=== PATIENT | male | born 1965 | race Caucasian/White ===

== ENCOUNTER 2021-09-10 16:42 | Day surgery (SDC) | payer OTHER ==
[~2021-09-10] VITALS: Ht 182.9 cm; Wt 85.5 kg
[2021-09-10 18:52] LABS: BASO # 0.1 10^3/uL (0.0-0.2); BASO % 0.4 % (0.0-1.0); EOS # 0.2 10^3/uL (0.0-0.5); EOS % 1.1 % (0.0-3.0); HEMATOCRIT 35.1 % (42.0-52.0); HEMOGLOBIN 13.1 g/dl (13.5-17.5); LYMPH # 1.2 10^3/uL (1.5-5.0); LYMPH % 8.6 % (24.0-44.0); MEAN CORPUSCULAR HEMOGLOBIN 34.9 pg (27.0-33.0); MEAN CORPUSCULAR HGB CONC 37.3 g/dl (32.0-36.5); MEAN CORPUSCULAR VOLUME 93.6 fl (80.0-96.0); MONO % 11.3 % (2.0-8.0); NEUTROPHILS % 77.6 % (36.0-66.0); PLATELET COUNT, AUTOMATED 138 10^3/uL (150-450); RED BLOOD COUNT 3.75 10^6/uL (4.30-6.10); WHITE BLOOD COUNT 14.2 10^3/uL (4.0-10.0)
[2021-09-10 19:04] LABS: INR 2.27; PROTHROMBIN TIME 25.4 SECONDS (12.7-14.5)
[2021-09-10 19:05] LABS: PARTIAL THROMBOPLASTIN TIME 59.8 SECONDS (25.9-37.0)
[2021-09-10] MEDS ORDERED: NS 1,000 ML IV ONE (19:05)
[2021-09-10] MEDS ORDERED: POTASSIUM CHLORIDE 10MEQ SR TABLET PO ONE (19:05)
[2021-09-10] MEDS ORDERED: KCL 10MEQ/100ML SWI (KRUN) 10 MEQ in IV 1 EA IV ONE (19:05)
[2021-09-10 19:19] LABS: MONO # 1.6 10^3/uL (0.0-0.8)
[2021-09-10 19:26] LABS: RSV AMPLIFICATION NEGATIVE (NEGATIVE)
[2021-09-10 19:29] LABS: ALBUMIN 1.9 GM/DL (3.2-5.2); ALT/SGPT 110 U/L (12-78); BILIRUBIN,DIRECT 14.9 MG/DL (0.0-0.2); BILIRUBIN,TOTAL 18.3 MG/DL (0.2-1.0); LIPASE 402 U/L (73-393); MAGNESIUM LEVEL 2.9 MG/DL (1.8-2.4); TOTAL PROTEIN 6.1 GM/DL (6.4-8.2)
[2021-09-10] MEDS ORDERED: PIPERACILLIN/TAZOBACTAM SOD 3.375 GM in D5W MINI-BAG PLUS 50 ML IV ONE (19:35)
[2021-09-10 20:03] LABS: ETHYL ALCOHOL (ETHANOL) 0.008 % (0.000-0.010); FREE T4 0.79 NG/DL (0.76-1.46); NT-PRO BNP 554 PG/ML (<125); PTH INTACT 404.8 PG/ML (18.5-88.0)
[2021-09-10 20:06] LABS: CK-MB VALUE MASS 4.4 NG/ML (<3.6); MB/CK RELATIVE INDEX 0.6 (< OR =4)
[2021-09-10 20:12] LABS: HEPATITIS B SURFACE ANTIGEN NEGATIVE (NEGATIVE)
[2021-09-10 20:40] LABS: HEPATITIS B CORE ANTIBODY IGM NEGATIVE (NEGATIVE); HEPATITIS C VIRUS ABY INDEX 0.1 INDEX (<0.8)
[2021-09-10] MEDS ORDERED: FERR324T21 PO (21:41)
[2021-09-10] MEDS ORDERED: MIDO5TA PO (21:41)
[2021-09-10] MEDS ORDERED: POTA1TAB14 PO (21:41)
[2021-09-10] MEDS ORDERED: VITA100093 PO (21:41)
[2021-09-10] MEDS ORDERED: EQL50TAB2 PO (21:41)
[2021-09-10] MEDS ORDERED: PANT-23 PO (21:41)
[2021-09-10] MEDS ORDERED: SPIR-10 PO (21:41)
[2021-09-10] MEDS ORDERED: LACT20EL PO (21:41)
[2021-09-10] MEDS ORDERED: HOME MED LIST COMPLETE! XX SCH (21:45)
[2021-09-11] VITALS (18 sets, daily range): BP systolic 86–156; BP diastolic 52–77
[2021-09-11] MEDS ORDERED: PANTOPRAZOLE 40MG VIAL IV ONE (00:25)
[2021-09-11] MEDS ORDERED: OCTREOTIDE ACETATE 100MCG/ML VIAL **IV ADMINISTRATION ONLY IV ONE (00:25)
[2021-09-11] MEDS: PANTOPRAZOLE SODIUM 40 MG in D5W MINI-BAG PLUS 50 ML IV SCH ×3 (00:25→07:47)
[2021-09-11] MEDS ORDERED: ONDANSETRON 4MG/2ML VIAL As Ordered ONE ×2 (00:41→08:48)
[2021-09-11] MEDS ORDERED: OCTREOTIDE ACETATE 1,200 MCG in NS 238.8 ML IV SCH (00:45)
[2021-09-11] MEDS ORDERED: ONDANSETRON 4MG/2ML VIAL IV ONE (00:45)
[2021-09-11 00:51] LABS: BASO % 0.3 % (0.0-1.0); EOS # 0.3 10^3/uL (0.0-0.5); HEMATOCRIT 24.1 % (42.0-52.0); LYMPH # 1.6 10^3/uL (1.5-5.0); LYMPH % 12.6 % (24.0-44.0); MEAN CORPUSCULAR HEMOGLOBIN 35.2 pg (27.0-33.0); MEAN CORPUSCULAR HGB CONC 36.5 g/dl (32.0-36.5); MEAN CORPUSCULAR VOLUME 96.4 fl (80.0-96.0); MONO % 12.9 % (2.0-8.0); NEUTROPHILS # 8.8 10^3/uL (1.5-8.5); NEUTROPHILS % 70.6 % (36.0-66.0); PLATELET COUNT, AUTOMATED 101 10^3/uL (150-450); WHITE BLOOD COUNT 12.4 10^3/uL (4.0-10.0)
[2021-09-11 00:56] LABS: HEMOGLOBIN 8.8 g/dl (13.5-17.5); MONO # 1.6 10^3/uL (0.0-0.8)
[2021-09-11] MEDS ORDERED: NOREPINEPHRINE 4 MG/4 ML AMP As Ordered ONE (01:20)
[2021-09-11] MEDS ORDERED: PIPERACILLIN/TAZOBACTAM SOD 3.375 GM in D5W MINI-BAG PLUS 50 ML IV ONE (01:25)
[2021-09-11] MEDS ORDERED: NS 2,560 ML in IV 1 EA IV ONE (01:25)
[2021-09-11] MEDS ORDERED: KCL 20MEQ IN 100ML SWI (KRUN) 20 MEQ in IV 1 EA IV ONE ×6 (01:25→05:00)
[2021-09-11 01:55] LABS: ALBUMIN 1.2 GM/DL (3.2-5.2); ALT/SGPT 72 U/L (12-78); BLOOD UREA NITROGEN 41 MG/DL (7-18); CALCIUM LEVEL 6.1 MG/DL (8.5-10.1); CARBON DIOXIDE LEVEL 30 MEQ/L (21-32); CHLORIDE LEVEL 86 MEQ/L (98-107); ETHYL ALCOHOL (ETHANOL) < 0.003 % (0.000-0.010); GLOMERULAR FILTRATION RATE 18.1 (>56); GLUCOSE, FASTING 133 MG/DL (70-100); POTASSIUM SERUM 2.5 MEQ/L (3.5-5.1); SODIUM LEVEL 128 MEQ/L (136-145)
[2021-09-11] MEDS: NOREPINEPHRINE BITARTRATE 8 MG in D5W 492 ML IV SCH ×2 (02:10→02:37)
[2021-09-11] MEDS ORDERED: TRANEXAMIC ACID INJection 1,000 MG in D5W 100 ML IV ONE (03:30)
[2021-09-11] MEDS ORDERED: CALCIUM CHLORIDE 10% 1 GM/10 ML SYR IV ONE (03:45)
[2021-09-11 04:13] LABS: BASO % 0.4 % (0.0-1.0); EOS # 0.2 10^3/uL (0.0-0.5); EOS % 1.9 % (0.0-3.0); HEMOGLOBIN 7.1 g/dl (13.5-17.5); LYMPH # 1.1 10^3/uL (1.5-5.0); LYMPH % 10.7 % (24.0-44.0); MEAN CORPUSCULAR HEMOGLOBIN 34.1 pg (27.0-33.0); MEAN CORPUSCULAR HGB CONC 36.2 g/dl (32.0-36.5); MEAN CORPUSCULAR VOLUME 94.2 fl (80.0-96.0); MONO # 1.3 10^3/uL (0.0-0.8); MONO % 12.5 % (2.0-8.0); NEUTROPHILS # 7.7 10^3/uL (1.5-8.5); NEUTROPHILS % 72.3 % (36.0-66.0); RED BLOOD COUNT 2.08 10^6/uL (4.30-6.10); WHITE BLOOD COUNT 10.7 10^3/uL (4.0-10.0)
[2021-09-11 04:17] LABS: HEMATOCRIT 19.6 % (42.0-52.0); PLATELET COUNT, AUTOMATED 77 10^3/uL (150-450)
[2021-09-11] MEDS ORDERED: PIPERACILLIN/TAZOBACTAM SOD 3.375 GM in D5W MINI-BAG PLUS 50 ML IV SCH ×2 (05:15→08:00)
[2021-09-11 07:07] LABS: BASO % 0.4 % (0.0-1.0); EOS # 0.2 10^3/uL (0.0-0.5); EOS % 2.2 % (0.0-3.0); HEMATOCRIT 24.5 % (42.0-52.0); HEMOGLOBIN 8.5 g/dl (13.5-17.5); LYMPH # 1.1 10^3/uL (1.5-5.0); LYMPH % 12.2 % (24.0-44.0); MEAN CORPUSCULAR HEMOGLOBIN 30.5 pg (27.0-33.0); MEAN CORPUSCULAR HGB CONC 34.7 g/dl (32.0-36.5); MEAN CORPUSCULAR VOLUME 87.8 fl (80.0-96.0); MONO # 1.4 10^3/uL (0.0-0.8); MONO % 14.8 % (2.0-8.0); NEUTROPHILS # 6.1 10^3/uL (1.5-8.5); NEUTROPHILS % 66.6 % (36.0-66.0); RED BLOOD COUNT 2.79 10^6/uL (4.30-6.10); WHITE BLOOD COUNT 9.2 10^3/uL (4.0-10.0)
[2021-09-11 07:09] LABS: PLATELET COUNT, AUTOMATED 44 10^3/uL (150-450)
[2021-09-11 07:47] LABS: CALCIUM LEVEL 5.9 MG/DL (8.5-10.1); CREATININE FOR GFR 3.34 MG/DL (0.70-1.30); GLOMERULAR FILTRATION RATE 20.3 (>56); POTASSIUM SERUM 3.2 MEQ/L (3.5-5.1)
[2021-09-11 08:01] LABS: MAGNESIUM LEVEL 2.4 MG/DL (1.8-2.4)
[2021-09-11] MEDS ORDERED: propofoL 200 MG/20 ML VIAL As Ordered ONE (08:48)
[2021-09-11] MEDS ORDERED: METOCLOPRAMIDE INJ 10MG/2ML VIAL (J2765 PER 1) As Ordered ONE (08:48)
[2021-09-11] MEDS ORDERED: ETOMIDATE INJ 20MG/10ML VIAL As Ordered ONE (08:48)
[2021-09-11] MEDS ORDERED: SUCCINYLCHOLINE 100 MG/5 ML SYRINGE (J0330) As Ordered ONE (08:48)
[2021-09-11] MEDS ORDERED: LIDOCAINE 2% 100MG/5ML SDV (FOR ANES.) As Ordered ONE (08:48)
[2021-09-11] MEDS ORDERED: MIDAZOLAM INJ 2MG/2ML VIAL (J2250 PER 1MG) As Ordered ONE (08:48)
[2021-09-11] MEDS ORDERED: fentaNYL 100 MCG/2 ML INJECTION As Ordered ONE (08:48)
[2021-09-11] MEDS ORDERED: CALCIUM CHLORIDE 10% 1 GM in D5W 100 ML IV ONE ×2 (09:10→10:35)
[2021-09-11] MEDS ORDERED: LR 1,000 ML IV SCH (09:25)
[2021-09-11] MEDS ORDERED: fentaNYL 100 MCG/2 ML INJECTION IV PRN (09:25)
[2021-09-11] MEDS ORDERED: ONDANSETRON 4MG/2ML VIAL IV PRN (09:25)
[2021-09-11] MEDS ORDERED: oxyCODONE 5MG TAB PO PRN (09:25)
== END 2021-09-11 10:38 | disposition short-term general hospital (02) ==
LOC: EDBD 16:42 → M ED 16:42 → M SDC 16:43 → M ED 09-11 10:38
PROVIDERS: ATTEND Internal Medicine Gastroenterology
DX: K92.0 Hematemesis (principal); K65.2 Spontaneous bacterial peritonitis; D62 Acute posthemorrhagic anemia; K92.2 Gastrointestinal hemorrhage, unspecified; K72.90 Hepatic failure, unspecified without coma; A41.9 Sepsis, unspecified organism; N17.9 Acute kidney failure, unspecified; I85.01 Esophageal varices with bleeding; K76.6 Portal hypertension; K31.89 Other diseases of stomach and duodenum
CPT/HCPCS: 36430; 43244; 71046; 76705; 80047; 80048; 80076; 81001; 82077; 82140; 82553; 83605; 83690; 83735; 83880; 83970; 84439; 84443; 84484; 85025; 85049; 85055; 85610; 85730; 86705; 86709; 86803; 86850; 86900; 86901; 86920; 86927; 87040; 87088; 87186; 87340; 87631; 93005; 94760; 96361; 96365; 96366; 96367; 96375; 96376; 99285; J0330; J2250; J2354; J2405; J2543; J2765; J3010

== ENCOUNTER 2022-01-03 18:56 | Emergency (ER) | payer OTHER ==
[~2022-01-03] VITALS: Ht 182.9 cm; Wt 77.3 kg
[~2022-01-03 18:56] MED LIST: EQL50TAB2 PO; FERR324T21 PO; LACT20EL PO; MIDO5TA PO; PANT-23 PO; POTA1TAB14 PO; SPIR-10 PO; VITA100093 PO
[2022-01-03] MEDS ORDERED: TACR1CAP3 PO (19:19)
[2022-01-03] MEDS ORDERED: MAGN1TAB26 PO (19:19)
[2022-01-03] MEDS ORDERED: BACTDSTA PO (19:19)
[2022-01-03] MEDS ORDERED: METO50TA7 PO (19:19)
[2022-01-03] MEDS ORDERED: PANT40TA29 PO (19:19)
[2022-01-03] MEDS ORDERED: PRED20TA PO (19:19)
[2022-01-03] MEDS ORDERED: nephrovite PO (19:19)
[2022-01-03] MEDS ORDERED: URSO300C3 PO (19:19)
[2022-01-03] MEDS ORDERED: NYST50SS PO (19:19)
[2022-01-03] MEDS ORDERED: VALG1TAB PO (19:19)
[2022-01-03] MEDS ORDERED: MAGN400T2 PO (19:19)
[2022-01-03] MEDS ORDERED: B-12100021 PO (19:19)
[2022-01-03] MEDS ORDERED: MYCO250C PO (19:19)
[2022-01-03] MEDS ORDERED: AMLO1TAB25 PO (19:19)
[2022-01-03] MEDS ORDERED: SODI650T PO (19:19)
[2022-01-03 20:31] LABS: HEMATOCRIT 31.6 % (42.0-52.0); HEMOGLOBIN 10.3 g/dl (13.5-17.5); MEAN CORPUSCULAR HEMOGLOBIN 33.3 pg (27.0-33.0); MEAN CORPUSCULAR HGB CONC 32.6 g/dl (32.0-36.5); MEAN CORPUSCULAR VOLUME 102.3 fl (80.0-96.0); PLATELET COUNT, AUTOMATED 294 10^3/uL (150-450); RED BLOOD COUNT 3.09 10^6/uL (4.30-6.10); WHITE BLOOD COUNT 12.5 10^3/uL (4.0-10.0)
[2022-01-03 21:02] LABS: ALBUMIN 3.8 GM/DL (3.2-5.2); ALT/SGPT 207 U/L (12-78); BILIRUBIN,DIRECT 0.2 MG/DL (0.0-0.2); BILIRUBIN,TOTAL 0.4 MG/DL (0.2-1.0); BLOOD UREA NITROGEN 30 MG/DL (7-18); CALCIUM LEVEL 9.2 MG/DL (8.5-10.1); CARBON DIOXIDE LEVEL 26 MEQ/L (21-32); CHLORIDE LEVEL 106 MEQ/L (98-107); CREATININE FOR GFR 0.94 MG/DL (0.70-1.30); GLOMERULAR FILTRATION RATE > 60.0 (>56); GLUCOSE, FASTING 108 MG/DL (70-100); POTASSIUM SERUM 4.5 MEQ/L (3.5-5.1); SODIUM LEVEL 138 MEQ/L (136-145); TOTAL PROTEIN 7.3 GM/DL (6.4-8.2)
[2022-01-03 21:04] LABS: BASOPHILS 1 % (0-1); EOSINOPHILS 1 % (0-3); LYMPHOCYTES 7 % (16-44); METAMYELOCYTES 4 % (0-0); MONOCYTES 2 % (0-5); NEUTROPHILS 71 % (28-66)
[2022-01-03 21:05] LABS: ANISOCYTOSIS 1+; PLATELET ESTIMATE NORMAL (NORMAL)
[2022-01-03 22:13] LABS: ETHYL ALCOHOL (ETHANOL) < 0.003 % (0.000-0.010)
[2022-01-03 22:58] LABS: RSV AMPLIFICATION NEGATIVE (NEGATIVE)
[2022-01-03 23:12] VITALS: BP 118/78
== END 2022-01-03 23:24 | disposition short-term general hospital (02) ==
LOC: M ED 18:56
DX: R74.01 Elevation of levels of liver transaminase levels (principal); Z94.4 Liver transplant status; I10 Essential (primary) hypertension; K21.9 Gastro-esophageal reflux disease without esophagitis; Z79.899 Other long term (current) drug therapy

== ENCOUNTER 2022-01-04 09:57 | Emergency (ER) | payer OTHER ==
[~2022-01-04] VITALS: Ht 182.9 cm; Wt 76.5 kg
[~2022-01-04 09:57] MED LIST changes: +AMLO1TAB25 PO; +B-12100021 PO; +BACTDSTA PO; +MAGN1TAB26 PO; +MAGN400T2 PO; +METO50TA7 PO; +MYCO250C PO; +NYST50SS PO; +PANT40TA29 PO; +PRED20TA PO; +SODI650T PO; +TACR1CAP3 PO; +URSO300C3 PO; +VALG1TAB PO; +nephrovite PO
[2022-01-04 13:00] VITALS: BP 163/72
== END 2022-01-04 13:41 | disposition left against medical advice (07) ==
LOC: M ED 09:57
DX: R74.01 Elevation of levels of liver transaminase levels (principal); Z94.4 Liver transplant status; Z53.9 Procedure and treatment not carried out, unspecified reason; Z79.899 Other long term (current) drug therapy

== ENCOUNTER 2023-05-13 13:12 | Inpatient (IN) | payer OTHER ==
[~2023-05-13] VITALS: Ht 185.4 cm; Wt 84.6 kg
[~2023-05-13 13:12] MED LIST changes: +NYST-38 PO; -NYST50SS PO; +POTA-298 PO; -POTA1TAB14 PO; -VALG1TAB PO; +VALG450T10 PO
[2023-05-13 14:05] LABS: HEMATOCRIT 39.6 % (42.0-52.0); HEMOGLOBIN 13.4 g/dl (13.5-17.5); MEAN CORPUSCULAR HGB CONC 33.8 g/dl (32.0-36.5); MEAN CORPUSCULAR VOLUME 91.7 fl (80.0-96.0); PLATELET COUNT, AUTOMATED 172 10^3/uL (150-450); RED BLOOD COUNT 4.32 10^6/uL (4.30-6.10); WHITE BLOOD COUNT 12.9 10^3/uL (4.0-10.0)
[2023-05-13 14:21] LABS: CREATININE FOR GFR 1.56 MG/DL (0.70-1.30); GLOMERULAR FILTRATION RATE 48.6 (>49); POTASSIUM SERUM 4.4 MMOL/L (3.5-5.1)
[2023-05-13] MEDS ORDERED: ASPIRIN 325 MG TAB PO ONE (14:25)
[2023-05-13] MEDS ORDERED: LABETALOL 100MG/20ML VIAL IV STA (14:41)
[2023-05-13] MEDS ORDERED: LABETALOL 100MG TAB PO ONE (14:45)
[2023-05-13] MEDS ORDERED: ISOVUE-370 76% 100ML VIAL As Ordered ONE (14:46)
[2023-05-13 14:52] LABS: BILIRUBIN,DIRECT 0.2 MG/DL (<0.4); BILIRUBIN,TOTAL 0.7 MG/DL (0.3-1.2); TOTAL PROTEIN 7.4 G/DL (5.7-8.2)
[2023-05-13 15:12] LABS: INR 1.19; PROTHROMBIN TIME 14.8 SECONDS (12.5-14.5)
[2023-05-13] MEDS ORDERED: NS 1,000 ML IV SCH (16:30)
[2023-05-13] MEDS: METOPROLOL TART 12.5 MG PER 1/2 TAB PO SCH (20:14)
[2023-05-13] MEDS: hydrALAZINE 20MG/ML 1ML VIAL IV SCH ×2 (20:52→21:00)
[2023-05-13] MEDS ORDERED: TACROLIMUS 1MG CAP PO SCH (21:00)
[2023-05-13] MEDS ORDERED: MYCOPHENOLATE MOFETIL 250 MG CAP (J7517) PO SCH (21:00)
[2023-05-13] MEDS ORDERED: ursodioL 300MG CAP PO SCH (21:00)
[2023-05-13 21:41] VITALS: BP 148/76; TEMP 97.3; O2SAT 100
[2023-05-13] MEDS: ATORVASTATIN 20 MG TAB PO SCH (23:21)
[2023-05-13 23:38] VITALS: BP 158/83; TEMP 97.4; O2SAT 99
[2023-05-13] MEDS ORDERED: TACR1CAP3 PO (23:40)
[2023-05-13] MEDS ORDERED: PRED10TA2 PO (23:40)
[2023-05-13] MEDS ORDERED: METO50TA7 PO (23:40)
[2023-05-13] MEDS ORDERED: ACET-897 PO (23:53)
[2023-05-13] MEDS ORDERED: TUMS500C PO (23:53)
[2023-05-13] MEDS ORDERED: AMIT50TA PO (23:53)
[2023-05-13] MEDS ORDERED: HOME MED LIST COMPLETE! XX SCH (23:55)
[2023-05-14] VITALS (7 sets, daily range): BP systolic 150–179; BP diastolic 78–97; TEMP 98–98.6; O2SAT 94–100
[2023-05-14] MEDS: hydrALAZINE 20MG/ML 1ML VIAL IV SCH ×3 (00:06→08:11)
[2023-05-14] MEDS: TACROLIMUS 1MG CAP PO SCH ×3 (02:32→21:02)
[2023-05-14] MEDS: METOPROLOL TART 12.5 MG PER 1/2 TAB PO SCH ×4 (05:22→18:23)
[2023-05-14 06:21] LABS: HEMATOCRIT 36.1 % (42.0-52.0); HEMOGLOBIN 12.3 g/dl (13.5-17.5); MEAN CORPUSCULAR HGB CONC 34.1 g/dl (32.0-36.5); MEAN CORPUSCULAR VOLUME 90.9 fl (80.0-96.0); PLATELET COUNT, AUTOMATED 187 10^3/uL (150-450); RED BLOOD COUNT 3.97 10^6/uL (4.30-6.10); WHITE BLOOD COUNT 12.6 10^3/uL (4.0-10.0)
[2023-05-14 06:51] LABS: ALBUMIN 3.6 G/DL (3.2-5.2); BILIRUBIN,TOTAL 0.5 MG/DL (0.3-1.2); CALCIUM LEVEL 8.4 MG/DL (8.3-10.6); CHOLESTEROL RISK RATIO 4.7 (<5); CREATININE FOR GFR 1.43 MG/DL (0.70-1.30); GLOMERULAR FILTRATION RATE 53.7 (>49); HDL CHOLESTEROL 42.5 MG/DL (>40); LDL CHOLESTEROL 116.5 MG/DL (<100); NON-HDL-C 157.5 MG/DL; POTASSIUM SERUM 4.1 MMOL/L (3.5-5.1); TOTAL PROTEIN 6.8 G/DL (5.7-8.2)
[2023-05-14] MEDS: ASPIRIN 325 MG TAB PO SCH (08:10)
[2023-05-14] MEDS ORDERED: ATOR1TAB21 PO (08:56)
[2023-05-14] MEDS ORDERED: ASPI-1 PO (08:56)
[2023-05-14] MEDS ORDERED: PANTOPRAZOLE 40MG TAB (PROTONIX) PO SCH (09:00)
[2023-05-14] MEDS ORDERED: NEPHRO-VIT TAB (NEPHROCAPS) PO SCH (09:00)
[2023-05-14] MEDS ORDERED: NS 2,000 ML IV ONE (09:00)
[2023-05-14] MEDS: ATORVASTATIN 20 MG TAB PO SCH (21:02)
[2023-05-15] MEDS: METOPROLOL TART 12.5 MG PER 1/2 TAB PO SCH ×2 (00:33→06:06)
[2023-05-15 06:02] VITALS: BP 190/92; TEMP 98.5; O2SAT 98
[2023-05-15 06:21] LABS: HEMATOCRIT 32.7 % (42.0-52.0); MEAN CORPUSCULAR HEMOGLOBIN 31.7 pg (27.0-33.0); MEAN CORPUSCULAR HGB CONC 33.6 g/dl (32.0-36.5); MEAN CORPUSCULAR VOLUME 94.2 fl (80.0-96.0); PLATELET COUNT, AUTOMATED 136 10^3/uL (150-450); RED BLOOD COUNT 3.47 10^6/uL (4.30-6.10); WHITE BLOOD COUNT 9.7 10^3/uL (4.0-10.0)
[2023-05-15 06:37] LABS: ERYTHROCYTE SEDIMENTATION RATE 18 mm/hr (0-20)
[2023-05-15 06:49] LABS: ALBUMIN 3.3 G/DL (3.2-5.2); ALKALINE PHOSPHATASE 47 U/L (46-116); ALT/SGPT < 9 U/L (7.0-40); AST/SGOT 10 U/L (<34); BILIRUBIN,TOTAL 0.5 MG/DL (0.3-1.2); BLOOD UREA NITROGEN 26 MG/DL (9-23); CALCIUM LEVEL 8.2 MG/DL (8.3-10.6); CARBON DIOXIDE LEVEL 21 MMOL/L (20-31); CHLORIDE LEVEL 109 MMOL/L (98-107); CREATININE FOR GFR 1.13 MG/DL (0.70-1.30); GLOMERULAR FILTRATION RATE > 60.0 (>49); GLUCOSE, FASTING 103 MG/DL (74-106); POTASSIUM SERUM 4.1 MMOL/L (3.5-5.1); SODIUM LEVEL 136 MMOL/L (136-145); TOTAL PROTEIN 6.1 G/DL (5.7-8.2)
[2023-05-15] MEDS: ASPIRIN 325 MG TAB PO SCH (09:42)
[2023-05-15] MEDS: TACROLIMUS 1MG CAP PO SCH ×2 (09:48→21:09)
[2023-05-15] MEDS: METOPROLOL TART 25 MG TABLET PO SCH ×2 (12:47→18:00)
[2023-05-15 14:02] VITALS: BP 177/87; TEMP 97.8; O2SAT 99
[2023-05-15 20:00] VITALS: BP 162/85; TEMP 96; O2SAT 89
[2023-05-15] MEDS: ATORVASTATIN 20 MG TAB PO SCH (21:08)
[2023-05-16] MEDS: METOPROLOL TART 25 MG TABLET PO SCH ×5 (06:00→23:46)
[2023-05-16] MEDS: ACETAMINOPHEN 500 MG TAB PO PRN ×3 (06:26→20:38)
[2023-05-16 06:40] LABS: HEMATOCRIT 33.8 % (42.0-52.0); HEMOGLOBIN 11.4 g/dl (13.5-17.5); MEAN CORPUSCULAR HEMOGLOBIN 31.2 pg (27.0-33.0); MEAN CORPUSCULAR HGB CONC 33.7 g/dl (32.0-36.5); MEAN CORPUSCULAR VOLUME 92.6 fl (80.0-96.0); PLATELET COUNT, AUTOMATED 136 10^3/uL (150-450); RED BLOOD COUNT 3.65 10^6/uL (4.30-6.10); WHITE BLOOD COUNT 9.9 10^3/uL (4.0-10.0)
[2023-05-16 07:08] LABS: ALBUMIN 3.3 G/DL (3.2-5.2); ALKALINE PHOSPHATASE 46 U/L (46-116); ALT/SGPT < 9 U/L (7.0-40); AST/SGOT 10 U/L (<34); BILIRUBIN,TOTAL 0.6 MG/DL (0.3-1.2); BLOOD UREA NITROGEN 20 MG/DL (9-23); CALCIUM LEVEL 8.4 MG/DL (8.3-10.6); CARBON DIOXIDE LEVEL 24 MMOL/L (20-31); CHLORIDE LEVEL 107 MMOL/L (98-107); CREATININE FOR GFR 1.21 MG/DL (0.70-1.30); GLOMERULAR FILTRATION RATE > 60.0 (>49); GLUCOSE, FASTING 109 MG/DL (74-106); POTASSIUM SERUM 4.4 MMOL/L (3.5-5.1); SODIUM LEVEL 138 MMOL/L (136-145); TOTAL PROTEIN 6.2 G/DL (5.7-8.2)
[2023-05-16] MEDS: ASPIRIN 325 MG TAB PO SCH (09:30)
[2023-05-16] MEDS: TACROLIMUS 1MG CAP PO SCH ×2 (09:31→22:04)
[2023-05-16 14:00] VITALS: BP 159/86; TEMP 98.1; O2SAT 100
[2023-05-16 18:00] VITALS: BP 172/102; TEMP 98.1; O2SAT 99
[2023-05-16 18:40] VITALS: BP 175/99
[2023-05-16] MEDS: ATORVASTATIN 20 MG TAB PO SCH (20:37)
[2023-05-16 22:00] VITALS: BP 147/84; TEMP 98.2; O2SAT 100
[2023-05-16 23:50] VITALS: BP 146/85
[2023-05-17 02:00] VITALS: BP 147/84; TEMP 98.1; O2SAT 100
[2023-05-17 04:00] VITALS: BP 142/85; TEMP 98.2; O2SAT 99
[2023-05-17] MEDS: ACETAMINOPHEN 500 MG TAB PO PRN ×4 (04:29→22:00)
[2023-05-17] MEDS: METOPROLOL TART 25 MG TABLET PO SCH ×3 (05:31→17:23)
[2023-05-17 06:06] LABS: HEMATOCRIT 35.2 % (42.0-52.0); HEMOGLOBIN 11.9 g/dl (13.5-17.5); MEAN CORPUSCULAR HEMOGLOBIN 31.6 pg (27.0-33.0); MEAN CORPUSCULAR HGB CONC 33.8 g/dl (32.0-36.5); MEAN CORPUSCULAR VOLUME 93.4 fl (80.0-96.0); PLATELET COUNT, AUTOMATED 159 10^3/uL (150-450); RED BLOOD COUNT 3.77 10^6/uL (4.30-6.10); WHITE BLOOD COUNT 9.1 10^3/uL (4.0-10.0)
[2023-05-17 06:39] LABS: ALBUMIN 3.5 G/DL (3.2-5.2); BILIRUBIN,TOTAL 0.6 MG/DL (0.3-1.2); CALCIUM LEVEL 8.4 MG/DL (8.3-10.6); CREATININE FOR GFR 1.34 MG/DL (0.70-1.30); GLOMERULAR FILTRATION RATE 57.9 (>49); POTASSIUM SERUM 4.3 MMOL/L (3.5-5.1); TOTAL PROTEIN 6.4 G/DL (5.7-8.2)
[2023-05-17] MEDS ORDERED: KETOROLAC 30 MG/ML 1ML VIAL IV ONE (07:00)
[2023-05-17] MEDS: ASPIRIN 325 MG TAB PO SCH (09:20)
[2023-05-17] MEDS: TACROLIMUS 1MG CAP PO SCH ×2 (09:21→20:49)
[2023-05-17 09:47] VITALS: BP 139/90
[2023-05-17 14:00] VITALS: BP 139/73; TEMP 98.8; O2SAT 97
[2023-05-17] MEDS: ATORVASTATIN 20 MG TAB PO SCH (20:49)
[2023-05-17 20:58] VITALS: BP 144/83; TEMP 98.2; O2SAT 100
[2023-05-17] MEDS ORDERED: ACETAMINOPHEN TAB 650MG DOSE (2X325MG) PO PRN (21:20)
[2023-05-18] MEDS: METOPROLOL TART 25 MG TABLET PO SCH ×4 (00:16→17:12)
[2023-05-18 00:19] VITALS: BP 152/92; TEMP 98.8
[2023-05-18 04:17] VITALS: BP 133/84; TEMP 98.2
[2023-05-18 05:28] VITALS: BP_SYST 139; BP_DIAS 62; BP_DIAS 82; TEMP 97.2; O2SAT 99
[2023-05-18] MEDS: ACETAMINOPHEN 500 MG TAB PO PRN ×3 (05:40→21:37)
[2023-05-18 06:49] LABS: HEMATOCRIT 36.9 % (42.0-52.0); HEMOGLOBIN 12.2 g/dl (13.5-17.5); MEAN CORPUSCULAR HEMOGLOBIN 30.9 pg (27.0-33.0); MEAN CORPUSCULAR HGB CONC 33.1 g/dl (32.0-36.5); MEAN CORPUSCULAR VOLUME 93.4 fl (80.0-96.0); PLATELET COUNT, AUTOMATED 175 10^3/uL (150-450); RED BLOOD COUNT 3.95 10^6/uL (4.30-6.10); WHITE BLOOD COUNT 10.9 10^3/uL (4.0-10.0)
[2023-05-18 07:10] LABS: ALBUMIN 3.4 G/DL (3.2-5.2); BILIRUBIN,TOTAL 0.5 MG/DL (0.3-1.2); CALCIUM LEVEL 8.5 MG/DL (8.3-10.6); CREATININE FOR GFR 1.65 MG/DL (0.70-1.30); GLOMERULAR FILTRATION RATE 45.5 (>49); POTASSIUM SERUM 4.7 MMOL/L (3.5-5.1); TOTAL PROTEIN 6.4 G/DL (5.7-8.2)
[2023-05-18] MEDS ORDERED: NS 1,000 ML IV ONE (08:05)
[2023-05-18 08:19] VITALS: BP 142/81; TEMP 98.1; O2SAT 100
[2023-05-18] MEDS: ASPIRIN 325 MG TAB PO SCH (08:47)
[2023-05-18] MEDS: TACROLIMUS 1MG CAP PO SCH ×2 (08:49→20:10)
[2023-05-18] MEDS ORDERED: CALCIUM GLUCONATE 1,000 MG in D5W MINI-BAG PLUS 100 ML IV ONE (09:00)
[2023-05-18 09:09] LABS: CK-MB VALUE MASS 1.2 NG/ML (<3.6)
[2023-05-18 09:11] LABS: MB/CK RELATIVE INDEX 1.79 (< OR =4)
[2023-05-18] MEDS: LR 1,000 ML IV SCH ×2 (10:54→22:45)
[2023-05-18 13:25] LABS: CALCIUM LEVEL 8.5 MG/DL (8.3-10.6); CREATININE FOR GFR 1.59 MG/DL (0.70-1.30); GLOMERULAR FILTRATION RATE 47.5 (>49); POTASSIUM SERUM 4.7 MMOL/L (3.5-5.1)
[2023-05-18 14:00] VITALS: BP 149/83; TEMP 98.1; O2SAT 100
[2023-05-18] MEDS: amLODIPine 5 MG TAB PO SCH ×2 (14:15→20:10)
[2023-05-18] MEDS ORDERED: HYDROMORPHONE HCL 0.5 MG/ 0.5 ML SYRINGE IV ONE (17:00)
[2023-05-18] MEDS ORDERED: METOCLOPRAMIDE INJ 10MG/2ML VIAL IV ONE (17:00)
[2023-05-18 19:21] LABS: CALCIUM LEVEL 8.5 MG/DL (8.3-10.6); CREATININE FOR GFR 1.51 MG/DL (0.70-1.30); GLOMERULAR FILTRATION RATE 50.4 (>49); POTASSIUM SERUM 4.4 MMOL/L (3.5-5.1)
[2023-05-18] MEDS: ATORVASTATIN 20 MG TAB PO SCH (20:10)
[2023-05-18 21:08] VITALS: BP 151/83; TEMP 98.1; O2SAT 98
[2023-05-19] MEDS: METOPROLOL TART 25 MG TABLET PO SCH ×4 (00:09→17:25)
[2023-05-19 01:21] LABS: CALCIUM LEVEL 8.5 MG/DL (8.3-10.6); CREATININE FOR GFR 1.38 MG/DL (0.70-1.30); POTASSIUM SERUM 4.3 MMOL/L (3.5-5.1)
[2023-05-19 05:33] VITALS: BP 112/68; TEMP 98.6; O2SAT 99
[2023-05-19] MEDS: ACETAMINOPHEN 500 MG TAB PO PRN ×3 (05:45→20:41)
[2023-05-19 06:07] LABS: HEMATOCRIT 35.4 % (42.0-52.0); HEMOGLOBIN 11.9 g/dl (13.5-17.5); MEAN CORPUSCULAR HEMOGLOBIN 31.2 pg (27.0-33.0); MEAN CORPUSCULAR HGB CONC 33.6 g/dl (32.0-36.5); MEAN CORPUSCULAR VOLUME 92.9 fl (80.0-96.0); PLATELET COUNT, AUTOMATED 175 10^3/uL (150-450); RED BLOOD COUNT 3.81 10^6/uL (4.30-6.10); WHITE BLOOD COUNT 10.7 10^3/uL (4.0-10.0)
[2023-05-19 06:33] LABS: ALBUMIN 3.4 G/DL (3.2-5.2); BILIRUBIN,TOTAL 0.4 MG/DL (0.3-1.2); CALCIUM LEVEL 8.8 MG/DL (8.3-10.6); CREATININE FOR GFR 1.3 MG/DL (0.70-1.30); GLOMERULAR FILTRATION RATE 59.9 (>49); POTASSIUM SERUM 4.3 MMOL/L (3.5-5.1); TOTAL PROTEIN 6.4 G/DL (5.7-8.2)
[2023-05-19 07:34] LABS: THYROID STIMULATING HORMONE 4.121 uIU/ML (0.55-4.78)
[2023-05-19] MEDS: ASPIRIN 325 MG TAB PO SCH (09:06)
[2023-05-19] MEDS: LR 1,000 ML IV SCH ×2 (09:06→19:14)
[2023-05-19] MEDS: TACROLIMUS 1MG CAP PO SCH ×2 (09:08→20:34)
[2023-05-19] MEDS: amLODIPine 5 MG TAB PO SCH ×2 (09:08→20:34)
[2023-05-19] MEDS: KETOROLAC TROMETHAMINE 10 MG TAB PO PRN (13:32)
[2023-05-19 14:00] VITALS: BP 158/87; TEMP 98.1; O2SAT 100
[2023-05-19] MEDS: ATORVASTATIN 20 MG TAB PO SCH (20:35)
[2023-05-19 21:28] VITALS: BP 153/86; TEMP 98.6; O2SAT 99
[2023-05-20] VITALS (10 sets, daily range): BP systolic 115–156; BP diastolic 73–81; TEMP 97.3–98.8; O2SAT 98–100
[2023-05-20] MEDS: METOPROLOL TART 25 MG TABLET PO SCH ×5 (00:28→23:57)
[2023-05-20 05:56] LABS: HEMATOCRIT 33.8 % (42.0-52.0); HEMOGLOBIN 11.4 g/dl (13.5-17.5); MEAN CORPUSCULAR HEMOGLOBIN 31.3 pg (27.0-33.0); MEAN CORPUSCULAR HGB CONC 33.7 g/dl (32.0-36.5); MEAN CORPUSCULAR VOLUME 92.9 fl (80.0-96.0); PLATELET COUNT, AUTOMATED 190 10^3/uL (150-450); RED BLOOD COUNT 3.64 10^6/uL (4.30-6.10); WHITE BLOOD COUNT 9.5 10^3/uL (4.0-10.0)
[2023-05-20 06:25] LABS: ALBUMIN 3.2 G/DL (3.2-5.2); BILIRUBIN,TOTAL 0.3 MG/DL (0.3-1.2); CALCIUM LEVEL 8.5 MG/DL (8.3-10.6); CREATININE FOR GFR 1.33 MG/DL (0.70-1.30); GLOMERULAR FILTRATION RATE 58.4 (>49); POTASSIUM SERUM 4.4 MMOL/L (3.5-5.1); TOTAL PROTEIN 6.1 G/DL (5.7-8.2)
[2023-05-20] MEDS ORDERED: NS 1,000 ML IV SCH (07:15)
[2023-05-20] MEDS: TACROLIMUS 1MG CAP PO SCH ×2 (08:36→21:41)
[2023-05-20] MEDS: amLODIPine 5 MG TAB PO SCH ×2 (08:36→21:44)
[2023-05-20] MEDS: ASPIRIN 325 MG TAB PO SCH (08:36)
[2023-05-20] MEDS: KETOROLAC TROMETHAMINE 10 MG TAB PO PRN (08:36)
[2023-05-20] MEDS: ACETAMINOPHEN 500 MG TAB PO PRN (12:41)
[2023-05-20 16:11] LABS: ANCA-ATYPICAL <1:20 titer (Neg:<1:20); CYTOPLASMIC NEUTROP AB ANCA-C <1:20 titer (Neg:<1:20); HOMOCYST(E)INE SERUM 21.3 umol/L (0.0-14.5); PERINUCLEAR AB ANCA-P <1:20 titer (Neg:<1:20)
[2023-05-20] MEDS ORDERED: ONDANSETRON 4MG 2ML VIAL IV PRN (16:55)
[2023-05-20] MEDS ORDERED: LR 1,000 ML IV SCH (16:55)
[2023-05-20] MEDS ORDERED: METOCLOPRAMIDE INJ 10MG/2ML VIAL IV PRN (16:55)
[2023-05-20] MEDS ORDERED: oxyCODONE 5MG TAB PO PRN (16:55)
[2023-05-20] MEDS: ATORVASTATIN 20 MG TAB PO SCH (21:42)
[2023-05-21 02:40] VITALS: BP 149/79; TEMP 98.1; O2SAT 99
[2023-05-21] MEDS: METOPROLOL TART 25 MG TABLET PO SCH ×2 (05:58→12:11)
[2023-05-21] MEDS: ASPIRIN 325 MG TAB PO SCH (09:04)
[2023-05-21] MEDS: amLODIPine 5 MG TAB PO SCH (09:05)
[2023-05-21] MEDS: TACROLIMUS 1MG CAP PO SCH (09:05)
[2023-05-21 10:30] VITALS: BP 128/82; TEMP 98.2; O2SAT 98
[2023-05-21] MEDS: ACETAMINOPHEN 500 MG TAB PO PRN (12:10)
[2023-05-21 12:11] VITALS: BP 135/86
[2023-05-21] MEDS ORDERED: ECOT81TA5 PO (13:32)
[2023-05-21 14:40] VITALS: BP 126/79; TEMP 98.8; O2SAT 99
[2023-05-25 10:07] LABS: ANTINUCLEAR ANTIBODIES DIRECT Negative (Negative); CARDIOLIPIN IGA ANTIBODY <9 APL U/mL (0-11); CARDIOLIPIN IGG ANTIBODY <9 GPL U/mL (0-14); CARDIOLIPIN IGM ANTIBODY <9 MPL U/mL (0-12)
== END 2023-05-21 15:30 | disposition home or self-care (01) | DRG 65 ==
LOC: M ED 13:12 → M ED INP 15:59 → ENRESERV 16:15 → M PCU 21:15 → M MS4PR 05-14 21:47 → M MSPAV 05-16 18:19
PROVIDERS: ADMIT General Practice; ATTEND Student in an Organized Health Care Education/Training Program
PROC: B246ZZZ Ultrasonography of Right and Left Heart (ICD-10-PCS; principal; 2023-05-20 16:30)
DX: I63.9 Cerebral infarction, unspecified (principal); Z94.4 Liver transplant status; G81.91 Hemiplegia, unspecified affecting right dominant side; I48.92 Unspecified atrial flutter; N17.9 Acute kidney failure, unspecified; F17.210 Nicotine dependence, cigarettes, uncomplicated; M54.9 Dorsalgia, unspecified; G89.29 Other chronic pain; I10 Essential (primary) hypertension; K31.89 Other diseases of stomach and duodenum; I65.22 Occlusion and stenosis of left carotid artery; I16.0 Hypertensive urgency; Z79.52 Long term (current) use of systemic steroids; Z79.899 Other long term (current) drug therapy; Z88.0 Allergy status to penicillin; Z20.822 Contact with and (suspected) exposure to COVID-19

== ENCOUNTER → 2024-11-08 | Outpatient (CLI) | payer OTHER ==
[~2024-11-08] MED LIST changes: +ACET-897 PO; +AMIT50TA PO; +ASPI-1 PO; +ATOR1TAB21 PO; +ECOT81TA5 PO; -EQL50TAB2 PO; +PRED10TA2 PO; +TUMS500C PO; +VITA1TAB82 PO
== END ==
LOC: M EKG 09:05
PROVIDERS: ATTEND Internal Medicine Cardiovascular Disease
DX: I48.91 Unspecified atrial fibrillation (principal); I63.9 Cerebral infarction, unspecified

== ENCOUNTER 2025-03-06 14:15 | Inpatient (IN) | payer OTHER ==
[~2025-03-06] VITALS: Ht 182.9 cm; Wt 97.8 kg
[~2025-03-06 14:15] MED LIST changes: +CARV25TA PO; +PRAZ5CAP PO; +PREG150C2 PO
[2025-03-06 14:50] LABS: BASO # 0.0 10^3/uL (0.0-0.2); BASO % 0.3 % (0.0-1.0); EOS # 0.3 10^3/uL (0.0-0.5); EOS % 2.3 % (0.0-3.0); LYMPH # 3.9 10^3/uL (1.5-5.0); LYMPH % 34.3 % (24.0-44.0); MONO # 0.9 10^3/uL (0.0-0.8); MONO % 7.4 % (2.0-8.0); NEUTROPHILS # 6.3 10^3/uL (1.5-8.5); NEUTROPHILS % 55.3 % (36.0-66.0); PLATELET COUNT, AUTOMATED 168 10^3/uL (150-450)
[2025-03-06 15:04] LABS: INR 0.93
[2025-03-06 15:14] LABS: CALCIUM LEVEL 8.3 MG/DL (8.3-10.6); CARBON DIOXIDE LEVEL 23 MMOL/L (20-31); CHLORIDE LEVEL 104 MMOL/L (98-107); CREATININE FOR GFR 3.30 MG/DL (0.70-1.30); GLOMERULAR FILTRATION RATE 20.4 (>49); POTASSIUM SERUM 4.5 MMOL/L (3.5-5.1); SODIUM LEVEL 137 MMOL/L (136-145)
[2025-03-06 17:20] LABS: ALT/SGPT < 9 U/L (7.0-40); AST/SGOT 11 U/L (<34)
[2025-03-06] MEDS ORDERED: MAALOX 30 ML SUSP *UDC PO PRN (18:05)
[2025-03-06] MEDS ORDERED: MOM 30 ML SUSPENSION UDC PO PRN (18:05)
[2025-03-06] MEDS ORDERED: HOME MED LIST COMPLETE! XX SCH (18:40)
[2025-03-06 18:42] LABS: CHOLESTEROL LEVEL 104 MG/DL (<200); CHOLESTEROL RISK RATIO 3.40 (<5); LDL CHOLESTEROL 46.7 MG/DL (<100); NON-HDL-C 73.5 MG/DL; TRIGLYCERIDES LEVEL 134 MG/DL (<150)
[2025-03-06 18:45] LABS: FREE T4 1.03 NG/DL (0.89-1.76)
[2025-03-06 19:37] LABS: ESTIMATED AVERAGE GLUCOSE 140.0 MG/DL (60-110)
[2025-03-06] MEDS: CLOPIDOGREL 75 MG TAB PO SCH (19:55)
[2025-03-06] MEDS: PRAZOSIN 1 MG CAP PO SCH (19:55)
[2025-03-06] MEDS: ATORVASTATIN 20 MG TAB PO SCH (19:55)
[2025-03-06] MEDS: DOCUSATE SODIUM 100 MG CAPSULE PO SCH (19:56)
[2025-03-06] MEDS: AMITRIPTYLINE 50MG TAB PO SCH (19:56)
[2025-03-06] MEDS: TACROLIMUS 1MG CAP PO SCH (19:56)
[2025-03-06] MEDS: PREGABALIN 75 MG CAP PO SCH (19:56)
[2025-03-06] MEDS: NS (Normal Saline) 0.9% 1,000 ML IV SCH (19:56)
[2025-03-06 20:19] LABS: APPEARANCE, URINE CLEAR (CLEAR); BACTERIA, URINE AUTO NEGATIVE (NEGATIVE); BILIRUBIN, URINE AUTO NEGATIVE (NEGATIVE); BLOOD, URINE BLOOD 1+ (NEGATIVE); GLUCOSE, URINE (UA) AUTO NEGATIVE (NEGATIVE); KETONE, URINE AUTO NEGATIVE (NEGATIVE); LEUKOCYTE ESTERASE, URINE AUTO NEGATIVE (NEGATIVE); NITRITE, URINE AUTO NEGATIVE (NEGATIVE); PROTEIN, URINE AUTO NEGATIVE (NEGATIVE); RBC, URINE AUTO 0 /HPF (0-3); SPECIFIC GRAVITY URINE AUTO 1.003 (1.002-1.035); SQUAMOUS EPITHELIAL CELL UR AU 0 /HPF (0-6); UROBILINOGEN, URINE AUTO 0.2 mg/dL (0.0-2.0); WBC, URINE AUTO 1 /HPF (0-3)
[2025-03-06] MEDS: HEPARIN SOD 5000 UNITS/ML 1 ML VIAL/SYRINGE SC SCH (22:14)
[2025-03-07 02:00] VITALS: BP 136/72; TEMP 97.7; O2SAT 95
[2025-03-07 05:30] VITALS: BP 142/80; TEMP 97.7; O2SAT 97
[2025-03-07 07:35] LABS: BASO # 0.0 10^3/uL (0.0-0.2); BASO % 0.3 % (0.0-1.0); EOS # 0.2 10^3/uL (0.0-0.5); EOS % 3.0 % (0.0-3.0); LYMPH # 3.2 10^3/uL (1.5-5.0); LYMPH % 40.8 % (24.0-44.0); MONO # 0.6 10^3/uL (0.0-0.8); MONO % 7.4 % (2.0-8.0); NEUTROPHILS # 3.8 10^3/uL (1.5-8.5); NEUTROPHILS % 48.1 % (36.0-66.0); PLATELET COUNT, AUTOMATED 167 10^3/uL (150-450)
[2025-03-07 08:03] LABS: ALT/SGPT < 9 U/L (7.0-40); AST/SGOT 10 U/L (<34); CALCIUM LEVEL 8.5 MG/DL (8.3-10.6); CARBON DIOXIDE LEVEL 25 MMOL/L (20-31); CHLORIDE LEVEL 106 MMOL/L (98-107); CREATININE FOR GFR 2.29 MG/DL (0.70-1.30); GLOMERULAR FILTRATION RATE 31.7 (>49); MAGNESIUM LEVEL 1.6 MG/DL (1.8-2.4); POTASSIUM SERUM 3.7 MMOL/L (3.5-5.1); SODIUM LEVEL 143 MMOL/L (136-145)
[2025-03-07] MEDS: ASPIRIN 81 MG CHEWABLE TABLET PO SCH (09:32)
[2025-03-07 20:00] VITALS: BP 142/88; O2SAT 95; O2SAT 96
[2025-03-07 20:07] VITALS: BP 134/76; TEMP 98.1; O2SAT 98
[2025-03-07] MEDS: ACETAMINOPHEN 325 MG TAB PO PRN (21:25)
[2025-03-07 22:39] VITALS: BP 152/80; O2SAT 97
[2025-03-08] VITALS: BP 105/63; TEMP 99.2; O2SAT 94
[2025-03-08 04:01] VITALS: BP 121/73; TEMP 98.2; O2SAT 94
[2025-03-08 05:30] VITALS: O2SAT 95
[2025-03-08 05:46] VITALS: O2SAT 95
[2025-03-08 06:06] LABS: BASO # 0.0 10^3/uL (0.0-0.2); BASO % 0.3 % (0.0-1.0); EOS # 0.2 10^3/uL (0.0-0.5); EOS % 2.6 % (0.0-3.0); LYMPH # 3.5 10^3/uL (1.5-5.0); LYMPH % 46.2 % (24.0-44.0); MONO # 0.7 10^3/uL (0.0-0.8); MONO % 8.5 % (2.0-8.0); NEUTROPHILS # 3.2 10^3/uL (1.5-8.5); NEUTROPHILS % 41.9 % (36.0-66.0); PLATELET COUNT, AUTOMATED 156 10^3/uL (150-450)
[2025-03-08 06:51] LABS: ALT/SGPT < 9 U/L (7.0-40); AST/SGOT 9 U/L (<34); CALCIUM LEVEL 7.9 MG/DL (8.3-10.6); CARBON DIOXIDE LEVEL 24 MMOL/L (20-31); CHLORIDE LEVEL 111 MMOL/L (98-107); CREATININE FOR GFR 1.81 MG/DL (0.70-1.30); GLOMERULAR FILTRATION RATE 42.0 (>49); MAGNESIUM LEVEL 1.4 MG/DL (1.8-2.4); POTASSIUM SERUM 4.2 MMOL/L (3.5-5.1); SODIUM LEVEL 145 MMOL/L (136-145)
[2025-03-08] MEDS ORDERED: ASPI81CH33 PO (07:48)
[2025-03-08] MEDS ORDERED: CLOP75TA99 PO (07:48)
[2025-03-08] MEDS ORDERED: MAGN500C2 PO (07:49)
[2025-03-08] MEDS ORDERED: PROT1TAB2 PO (07:52)
[2025-03-08] MEDS: MAG SULF 1GM/100ML (MAG RUN) 1 GM in IV 1 EA IV SCH (08:11)
[2025-03-08 08:34] VITALS: BP 137/72
[2025-03-08 10:58] VITALS: BP 141/82; TEMP 97.9; O2SAT 97
== END 2025-03-08 11:20 | disposition home or self-care (01) | DRG 47 ==
LOC: M ED 14:15 → M ED INP 18:04
PROVIDERS: ADMIT Internal Medicine; ATTEND Internal Medicine
DX: G45.9 Transient cerebral ischemic attack, unspecified (principal); N17.9 Acute kidney failure, unspecified; Z94.4 Liver transplant status; N18.30 Chronic kidney disease, stage 3 unspecified; G62.9 Polyneuropathy, unspecified; G81.91 Hemiplegia, unspecified affecting right dominant side; E83.42 Hypomagnesemia; I12.9 Hypertensive chronic kidney disease with stage 1 through stage 4 chronic kidney disease, or unspecified chronic kidney disease; F17.200 Nicotine dependence, unspecified, uncomplicated; R53.1 Weakness; Z79.899 Other long term (current) drug therapy; Z88.0 Allergy status to penicillin; Z86.73 Personal history of transient ischemic attack (TIA), and cerebral infarction without residual deficits

== ENCOUNTER → 2025-03-23 | Outpatient (REF) | payer OTHER ==
[~2025-03-23] MED LIST changes: +ASPI81CH33 PO; +CLOP75TA99 PO; +MAGN500C2 PO; +PROT1TAB2 PO
== END ==
LOC: M LAB REF 17:01
PROVIDERS: ATTEND Physician Assistant
DX: I48.91 Unspecified atrial fibrillation (principal)

== ENCOUNTER → 2025-03-28 | Outpatient (CLI) | payer OTHER ==
[~2025-03-28] MED LIST changes: -BACTDSTA PO; +SULF-8 PO
[2025-03-28 08:31] VITALS: TEMP 98
[2025-03-28] MEDS: LIDOCAINE 1% MDV 20 ML VIAL SC SCH (08:35)
[2025-03-28 09:25] LABS: BASO # 0.0 10^3/uL (0.0-0.2); BASO % 0.5 % (0.0-1.0); EOS # 0.3 10^3/uL (0.0-0.5); EOS % 3.9 % (0.0-3.0); LYMPH # 2.9 10^3/uL (1.5-5.0); LYMPH % 38.7 % (24.0-44.0); MONO # 0.7 10^3/uL (0.0-0.8); MONO % 8.7 % (2.0-8.0); NEUTROPHILS # 3.6 10^3/uL (1.5-8.5); NEUTROPHILS % 47.5 % (36.0-66.0); PLATELET COUNT, AUTOMATED 177 10^3/uL (150-450)
[2025-03-28 09:46] VITALS: BP 140/72; O2SAT 97
== END ==
LOC: M IRPRO 08:19
DX: D47.2 Monoclonal gammopathy (principal); C18.9 Malignant neoplasm of colon, unspecified